=== PATIENT | female | born 1995 | race Caucasian/White ===

== ENCOUNTER 2016-09-26 21:05 | Observation (INO) | payer OTHER ==
[~2016-09-26] VITALS: Ht 172.7 cm; Wt 67.2 kg
[2016-09-26 21:23] VITALS: BP 142/79; PULSE 95; RESP 18; O2SAT 100
[2016-09-26 22:03] LABS: APPEARANCE,URINE CLEAR (CLEAR,HAZY); COLOR,URINE YELLOW (YELLOW); PH,URINE 6.5 (5.0-8.0)
[2016-09-26 22:04] LABS: OCCULT BLOOD,URINE NEGATIVE (NEGATIVE); UROBILINOGEN,URINE NORMAL (NORMAL)
[2016-09-26 22:37] LABS: BASOPHILS % (AUTO) 0.2 % (0-3); EOSINOPHILS % (AUTO) 0.9 % (0-5); MONOCYTES % (AUTO) 10.8 % (4-12); Mean Corpuscular Hemoglobin 30.9 pg (27.0-35.0); Mean Corpuscular Volume 92.2 fL (81-100); NEUTROPHILS % (AUTO) 71.1 % (40-74); Platelet Count 233 bil/L (150-400)
[2016-09-26 23:10] LABS: Magnesium 1.9 mg/dL (1.6-2.6)
--- NOTE | 2016-09-26 23:13 | ED.REPORT ---
HPI-Abd Pain F Under 40 Date of Service Sep 26, 2016 ED Provider: Spencer Schmitz DO Patient is a 21 year old female who presents to the ED complaining of lower abdominal pain onset 0700 this morning. The patient describes the pain as stabbing and constant. Patient states that urinating increases her abdominal pain. She denies vomiting, nausea, diarrhea or dysuria. The patient's mother reports that she looks pale. Nursing Notes Stated Complaint: ABDOMINAL PAIN Chief Complaint: Female Abdominal Pain Nursing Notes Reviewed: Yes Allergies: Coded Allergies: No Known Allergies (Unverified , 09/26/16) General Time Seen by MD: 23:12 Chief Complaint Abdominal pain Hx Obtained From: Patient Arrived By: Walk-in Sudden in Onset?: Yes Onset Occurred: 5 - 8 hours ago Symptom Duration: Since onset Location: : Abdomen lower Quality: Stabbing Radiation: : Does not radiate Severity: Current: Moderate Associated with: Denies: Nausea, Vomiting Recent Healthcare: No recent doctor visit, No recent hospitalization Similar Sx Previous: No Past Medical History Past Medical History none reported Smoking History Unknown if Ever Smoker Social History Other Social History: Good social support Ambulatory Status Independent Review of Systems Constitutional: Denies: Chills, Fever Respiratory: Denies: Non-productive cough, Shortness of breath GI: Reports: Abdominal pain, Denies: Diarrhea, Nausea, Vomiting Female: Denies: Dysuria Complete sys rev & neg: except as marked. Physical Exam Initial Vital Signs Vital Signs (First) Date Time Temp Pulse Resp B/P Pulse Ox O2 Delivery O2 Flow Rate FiO2 09/26/16 21:23 36.9 95 18 142/79 100 Room Air Initial VS: Reviewed General/Constitutional: Awake, Alert Distress / Hydration: Positive: Distress moderate Respiratory / Chest: Atraumatic, Breath sounds NL, Breath sounds = bilat, No respiratory distress Cardiovascular: Heart rate NL, Regular rhythm, Heart sounds NL Abdomen: Atraumatic, Soft Tenderness/Guarding/Rebound: Positive: Tender RLQ... (Moderate), Tender diffuse Back: Atraumatic, Non-tender Head / Eyes: Atraumatic, Normocephalic, PERRL, EOMI generalized pallor Neurologic: Oriented X3, Speech NL, No motor deficits, No sensory deficits Upper Extremity / MS: Atraumatic, Full range of motion Lower Extremity / Pelvis / MS: Atraumatic, Full range of motion Psychiatric: Affect NL, Mood NL Interpretation & Diagnostics Interpretation & Diagnostics: US TRANSABDOMINAL PELVIS: CONCLUSION: 1. Acute appendicitis as detailed. There is a tubular blind-ending structure measuring up to 11mm diameter in the RLQ. There are a few echogenic foci measuring up to 8mm consistent with appendicoliths. Trace free fluid. 2. Ovaries are normal size. at 0120 Lab Results Interpretation Result Diagram: 09/26/16 [id number] Test 09/26/16 21:45 09/26/16 22:05 Urine Color Yellow (YELLOW) Urine Appearance Clear (CLEAR,HAZY) Urine pH 6.5 (5.0-8.0) Urine Specific Black 1.010 (1.003-1.035) Urine Protein Negativemg/dL (NEG,TRACE) Urine Glucose (UA) Negativemg/dL (NEGATIVE) Urine Ketones Negativemg/dL (NEGATIVE) Urine Occult Blood Negative (NEGATIVE) Urine Nitrite Negative (NEGATIVE) Urine Bilirubin Negative (NEGATIVE) Urine Urobilinogen Normalmg/dL (NORMAL) Urine Leukocyte Esterase Negative (NEGATIVE) Urine RBC 0-2/hpf (0-2) Urine WBC 0-5/hpf (0-5) Urine Epithelial Cells Moderate/hpf (NONE-MOD) Urine Crystals None seen (NONE SEEN) Urine Bacteria Few/hpf (NONE-FEW) Urine Hyaline Casts None/lpf (NONE) Urine Granular Casts None seen (NONE SEEN) Urine Waxy Casts None seen (NONE SEEN) Urine Red Blood Cell Casts None seen (NONE SEEN) Urine White Blood Cell Casts None seen (NONE SEEN) Urine Mucus None seen (None Seen) Urine Trichomonas None seen (NONE SEEN) Urine Yeast None (NONE SEEN) Urinalysis Comment None Urine Culture Reflexed Not indicated White Blood Count 13.3th/mm3 (3.8-10.1) Red Blood Count 4.34mil/mm3 (3.90-5.20) Hemoglobin 13.4g/dL (12.0-15.6) Hematocrit 40.0% (35.0-46.0) Mean Corpuscular Volume 92.2fL (81-100) Mean Corpuscular Hemoglobin 30.9pg (27.0-35.0) Mean Corpuscular Hemoglobin Concent 33.5% (32.0-37.0) Red Cell Distribution Width 12.5% (12.3-15.4) Platelet Count 233bil/L (150-400) Neutrophils (%) (Auto) 71.1% (40-74) Lymphocytes (%) (Auto) 16.8% (14-46) Monocytes (%) (Auto) 10.8% (4-12) Eosinophils (%) (Auto) 0.9% (0-5) Basophils (%) (Auto) 0.2% (0-3) Sodium Level 136mEq/L (134-144) Potassium Level 3.9mEq/L (3.5-5.2) Chloride Level 101mEq/L (97-108) Carbon Dioxide Level 20mmol/L (18-29) Blood Urea Nitrogen 10mg/dL (6-20) Creatinine 0.83mg/dL (0.57-1.00) Estimat Glomerular Filtration Rate 122mL/min (>59) Glucose Level 94mg/dL (60-99) Calcium Level 9.4mg/dL (8.5-10.1) Magnesium Level 1.9mg/dL (1.6-2.6) Total Bilirubin 0.3mg/dL (0.0-1.2) Aspartate Amino Transf (AST/SGOT) 15U/L (0-50) Alanine Aminotransferase (ALT/SGPT) 11U/L (0-32) Alkaline Phosphatase 48U/L (25-150) Total Protein 7.7g/dL (6.4-8.4) Albumin 4.7g/dL (3.4-5.0) Lipase 24U/L (13-60) Hold Hong Top Tube Received (Received) Re-Eval/Medical Decision Med Decision/Clinical Course Med Decision/Clinical Course: Right lower quadrant abdominal pain and tenderness. CT consistent with acute appendicitis. Admitted for observation until she can be seen for surgery tomorrow. Re-Evaluation/Progress : Time of Eval: 01:24 Re-Evaluation/Progress Note: Discussed results and plan for admission. The patient understands and agrees to the plan. All questions were addressed. Consultation : Referral / Consult Name: Dave Harris MD Consulted With: Surgeon Call Returned at: 01:32 Accountant Clerk: Agrees with eval, Agrees with plan, Accepts admit Counseled Regarding: Diagnosis, Lab results, Need for admission Discharge & Departure Primary Impression: Acute appendicitis Acute appendicitis type: unspecified acute appendicitis type Qualified Code: K35.80 - Unspecified acute appendicitis Disposition: ADMITTED TO HOSPITAL Discharge Condition All VS Reviewed: Yes Condition: Stable Referrals: Tammy Irene MD (PCP) Jose L Smith MD (Family) Scribe Attestation Portions of this note were transcribed by Zulma Richard. I, Dr. Schmitz personally performed the history, physical exam and medical decision-making; I reviewed and confirmed the accuracy of the information in the transcribed note. Signed by: Zulma Rossi, 09/26/16 and 2330 copies to: Tammy Irene MD; Jose L Smith MD, Todd P DO Sep 26, 2016 23:13 Nathalia Richard Sep 26, 2016 23:28
[2016-09-26] MEDS ORDERED: Ondansetron 2 mg/mL 2 mL Inj IVPUSH PRN (23:25)
[2016-09-26] MEDS: 0.9% Sodium Chloride 1,000 ML IV SCH (23:40)
[2016-09-26] MEDS: HYDROmorphone 0.5 mg/0.5 mL iSecure Syringe IVPUSH PRN (23:40)
[2016-09-27] VITALS (13 sets, daily range): BP systolic 95–138; BP diastolic 44–72; PULSE 80–151; RESP 12–22; O2SAT 96–100
[2016-09-27] MEDS: HYDROmorphone 0.5 mg/0.5 mL iSecure Syringe IVPUSH PRN ×7 (00:17→08:04)
[2016-09-27] MEDS: 0.9% Sodium Chloride 1,000 ML IV SCH (00:17)
[2016-09-27] MEDS ORDERED: Piperacillin-Tazo 3.375 Gm Inj 3.375 GM in Dextrose 5% Minibag Plus 50 ML IV ONE (01:25)
[2016-09-27] MEDS ORDERED: Alum-Mag Hydrox-Simeth 30 mL Suspension PO PRN (01:45)
[2016-09-27] MEDS ORDERED: Ondansetron 2 mg/mL 2 mL Inj IVPUSH PRN ×3 (01:45→10:15)
--- NOTE | 2016-09-27 02:45 | NUR ---
Admit Received report from [employer] [employer] FEEDER Kira Enriquez @ 2am who then brought patient to floor @ this time accompanied with mother DX acute appendicitis will have appy later today npo for now LR moises and .5 Dilaudid given for pain orientated to room ,ind. no previous medical hx admission complete
[2016-09-27] MEDS: Lactated Ringer's 1,000 ML IV SCH ×3 (03:21→11:42)
[2016-09-27] MEDS: Piperacillin-Tazo 3.375 Gm Inj 3.375 GM in Dextrose 5% Minibag Plus 50 ML IV SCH ×3 (08:30→16:30)
--- NOTE | 2016-09-27 08:49 | HP ---
[address] [address] HISTORY AND PHYSICAL PATIENT: IRVING CABRERA : 1995 MR#: [id number] ADMIT: 09/27/2016 JOB ID: [id number] DATE OF ENCOUNTER: 09/27/2016 CHIEF COMPLAINT: Acute Appendicitis. HISTORY OF PRESENT ILLNESS: The patient is a 21-year-old female presented to the emergency department last night with complaint of right lower quadrant abdominal pain. She tells me that she awoke Tuesday morning with a sharp stabbing right lower quadrant pain. She was provided temporary relief from ibuprofen, but then the pain recurred. She denies any nausea, vomiting, anorexia, or fevers or chills. She has had no recent change in her bowel habits. Her last menstrual period was about three weeks ago. The pain grew worse over the day, prompting a visit to the emergency department. There she was found to have leukocytosis of 13.3. An ultrasound of the abdomen was obtained, which was consistent with acute appendicitis demonstrating 11 mm blind tube in the right lower quadrant. The ovaries appeared normal. She was therefore admitted to the surgical service overnight after receiving a dose of Zosyn. PAST MEDICAL HISTORY: None. MEDICATIONS: None. ALLERGIES: She has a history to LATEX BAND-AIDS. PAST SURGICAL HISTORY: None. FAMILY HISTORY: Significant for a grandmother who has CHF. SOCIAL HISTORY: She lives in [place] and, works for [employer], does not smoke, rarely drinks alcohol. REVIEW OF SYSTEMS: Full review of systems is obtained and significant only for right lower quadrant abdominal pain. PHYSICAL EXAMINATION: She has remained afebrile overnight. This morning, she is mildly tachycardic up to 114. Blood pressure was 105/58. She is satting 100% on room air with respiratory rate of 16 breaths per minute. In general, she appears comfortable in no acute distress. Cardiovascular: She has a sinus tachycardia with no appreciated murmurs, rubs, gallops. Pulmonary: Lungs clear to auscultation bilaterally. Vascular: She has no carotid bruit. Neck: She has no thyromegaly. Lymph: She has no cervical lymphadenopathy. Gastrointestinal: Her abdomen is soft, nondistended. She has a negative Parisi sign. She has focal tenderness to palpation in the right lower quadrant. Extremities: Warm without significant edema. Skin is warm without rash. Neurologic is grossly intact. Psychiatric is pleasant appropriate. LABORATORY DATA: Labs in the emergency department she had a white blood cell count of 13.3, hematocrit 40, and platelet count of 233. Her metabolic panel was unremarkable. IMAGING: Ultrasound was personally viewed and as per the HPI. ASSESSMENT AND PLAN: This is a 21-year-old female with a history, physical, and sonographic findings consistent with early acute appendicitis. I discussed the diagnosis of acute appendicitis with the patient and her mother. I discussed the recommendation for laparoscopic appendectomy. I also reviewed nonoperative management with antibiotics. I discussed the possibility of a negative appendectomy. The patient understands and wishes to proceed with surgery. The technical and convalescent aspects of surgery, as well as potential risks and complications were reviewed. This will be done later this morning. BRANDON
--- NOTE | 2016-09-27 09:08 | DRSVH ---
PROCEDURE: US PELVIC SONOGRAM INDICATIONS: RLQ and left lower pelvic pain, leukocytosis TECHNIQUE: Real-time focused scanning was performed of the abdomen with attention to the appendix, with image do cumentation. COMPARISON: None. FINDINGS: Appendix visualization: yes Appendix measurements: 7.4-10.6 mm Associated findings: Echogenic fat: Present Appendiceal compressibility: Noncompressible Appendicoliths: Present Nearby free fluid: Small amount of free fluid Lymphadenopathy: No enlarged lymph node Tenderness on exam: Yes IMPRESSION: Appendix is thickened and noncompressible measuring up to 10.6 mm. There is an appendicol ith and a small amount of free fluid in the right lower quadrant. The ultrasound findings are highly suspicious for acute appendicitis. No significant discrepancy with the retail shift supervisor radiology preliminary report. Dictated by: Maxim Emery M.D. on 09/27/2016 at 8:58 Approved by: Maxim Emery M.D. on 09/27/2016 at 9:06
--- NOTE | 2016-09-27 09:20 | NUR ---
pain/OR Pt. reported pain to be 7-10/10. Pt. teary, holding on to belly. Pt. was given 0.5mg IV diluadid with very little relief. Pt. denies nausea at this time. IV fluids infusing per orders; pt. continues to be NPO. Pt. left Unit at 0920 to OR with Mom at her side.
[2016-09-27] MEDS ORDERED: Lactated Ringer's 1,000 ML IV SCH (10:12)
[2016-09-27] MEDS ORDERED: Lactated Ringer's 500 ML IV PRN (10:12)
[2016-09-27] MEDS ORDERED: Bupivacaine-MPF 0.5% W/EPI 30 mL Inj INFILTRATE ONE (10:14)
--- NOTE | 2016-09-27 10:14 | PCM.HPANE ---
Patient Data Surgeon Admitting Provider:Dave Harris MD Attending Provider:Dave Harris MD Primary Care Physician:Tammy Irene MD Other Provider:Jc Marshall Anesthesia Reason for Visit Acute Appendicitis Ht/WT & BMI Height (Feet): 5 Height (Inches): 8.00 Weight (Kilograms): 67.200 Body Mass Index 22.45 Allergies Coded Allergies: No Known Allergies (Unverified , 09/26/16) Past Anesthesia History Anesthesia History: Denies:: Abnormal Airway, Anesthesia Reactions, Difficult Intubation, Fam Anesthesia Reaction, Fam Malignant Hypertherm, Malignant Hyperthermia Diabetes History Hx Diabetes?: No MRSA MRSA: No Medications No Active Prescriptions or Reported Meds History History of ENT Problems?: No HEENT History: Denies:: Abnormal Airway Cataracts Difficult Intubation Dysphagia Glaucoma Hearing Problem Sinus Problem TMJ Denture Type: None Teeth Condition: Within Normal Limits Hx of Heart Problems?: No Cardiovascular History: Denies:: AICD Abdominal Aortic Aneurism Atrial Fibrillation Cardiac Surgery Chest Pain Congestive Heart Failure Coronary Artery Disease Edema Heart Murmur Hypertension Irregular Heartbeat Pacemaker Peripheral Vascular Rheumatic Fever Thrombophlebitis Valvular Heart Disease Hx of Respiratory Problem?: No Respiratory History: Denies:: Asthma COPD Chest Surgery Cough Dyspnea Emphysema Hemoptysis Oxygen Administration Pneumonia Pulmonary Embolism Tuberculosis Use of C-PAP Machine Use of Inhalers / NEBS Hx Neurologic Problems?: No Neurological History: Denies:: Alzheimer's Disease CVA Dementia Dizziness Headaches Multiple Sclerosis Parkinson's Disease Peripheral Neuropathy Seizures TIA Hx of GI Problems?: No Gastrointestinal History: Denies:: Cirrhosis Diverticulitis Gall Bladder Disease Gastroesphageal Reflux Gastrointestinal Bleeding Heartburn Hepatitis Hiatal Hernia Liver Disease Rectal Bleeding Hx of Problems?: Yes Genitourinary History: Positive for:: Urinary Tract Infection Denies:: HX of Hemodialysis Kidney Stones HX of Peritoneal Dialysis: No Female Hx: Denies:: Currently Endometriosis Pelvic Inflammatory Problems with Breasts? Skin History: Denies:: History Skin Disorders? Pressure Ulcers Hx Musculoskeletal Problems?: No Musculoskeletal History: Denies:: Back Injury Degenerative Joint Fibromyalgia Joint Replacement Musculoskeletal Trauma Myasthenia Gravis Osteoarthritis Rheumatoid Arthritis Systemic Lupus Hx of Psycho/Social Problems?: No Psycho Social History: Denies:: Anxiety Bipolar Disorder Hx Depression Suicide Attempt Hx Surgeries?: No Hx Any Other Health Problems?: No Other History: Denies:: Cancer Endocrine Disease Hospitalization Thyroid Disease History Blood Transfusions: Positive for:: Accept Blood Products? Denies:: Blood Transfuse Reaction Blood Transfusions Hx Diabetes: No Hx Alcohol Use: Yes (rare)Hx Substance Use: No Smoking Status: Unknown if Ever Smoker Stop/Bang Treated for Sleep Apnea?: No Do You Have a CPAP Machine?: No S-Snoring: Do You Snore Loudly: No T-Tired: feel tired, fatigued: Yes O-Obsered: Observed not breath: No P-Blood Pressure: treated: No B- Body Mass Index > 35 kg/m2: No A- Age over 50: No N- Neck Large Circumference: No G- Gender Male: No ANGELICA Total Score: 1 Risk Assessment Category Category 1A: Patient has history of documented sleep apnea, and HAS NOT received any narcotic, sedative or anesthesia administration during this stay. Category 1B: Patient has history of documented sleep apnea, and HAS received any narcotic , sedative or anesthesia administration during this stay Category 2: Patient has SUSPECTED Obstructive Sleep Apnea, and HAS received any narcotic , sedative or anesthesia administration during this stay. Category 3: Patient has SUSPECTED Obstructive Sleep Apnea and HAS NOT received narcotic, sedative or anesthesia administration during this stay. Category 4: Outpatient in Procedural Areas with known sleep apnea or who screen positive for High Risk via the STOP/BANG questionnaire. Exam Exam Vital Signs Vital Signs Date Time Temp Pulse Resp B/P Pulse Ox O2 Delivery O2 Flow Rate FiO2 09/27/16 06:09 37.2 114 16 105/58 100 Room Air 09/27/16 02:46 37.3 98 16 107/63 98 Room Air 09/27/16 01:56 37.1 80 16 138/72 98 Room Air General Appearance: Alert, Oriented X3, Cooperative, No Acute Distress HEENT/AIRWAY: MP 2, Neck Movement, Mouth Opening (3 FBMO) Lungs: Clear to Auscultation, Normal Air Movement Heart: Exam Unremarkable, Regular Rate/Rhythm, No Murmurs/Rubs/Gallops Meds/Labs/Diagnostics Admission Meds Current Medications Sodium Chloride 1,000 ml @ 0 mls/hr Q0M IV Last administered on 09/27/16t 00: 17; Start 09/26/16 at 23:25 Piperacillin Sod/ Tazobactam Sod 3.375 gm/Dextrose/ Water 50 ml @ 100 mls/hr ONCE ONCE IV Last administered on 09/27/16 01:33; Start 09/27/16 at 01:25; Stop 09/27/16 at 01:54; Status DC Lactated Ringer's (Lr) 1,000 ml @ 100 mls/hr Q10H IV Last administered on 09/27 03:21; Start 09/27/16 at 01:42 Labs Test 09/26/16 21:45 09/26/16 22:05 Urine Color Yellow (YELLOW) Urine Appearance Clear (CLEAR,HAZY) Urine pH 6.5 (5.0-8.0) Urine Specific [place] 1.010 (1.003-1.035) Urine Protein Negativemg/dL (NEG,TRACE) Urine Glucose (UA) Negativemg/dL (NEGATIVE) Urine Ketones Negativemg/dL (NEGATIVE) Urine Occult Blood Negative (NEGATIVE) Urine Nitrite Negative (NEGATIVE) Urine Bilirubin Negative (NEGATIVE) Urine Urobilinogen Normalmg/dL (NORMAL) Urine Leukocyte Esterase Negative (NEGATIVE) Urine RBC 0-2/hpf (0-2) Urine WBC 0-5/hpf (0-5) Urine Epithelial Cells Moderate/hpf (NONE-MOD) Urine Crystals None seen (NONE SEEN) Urine Bacteria Few/hpf (NONE-FEW) Urine Hyaline Casts None/lpf (NONE) Urine Granular Casts None seen (NONE SEEN) Urine Waxy Casts None seen (NONE SEEN) Urine Red Blood Cell Casts None seen (NONE SEEN) Urine White Blood Cell Casts None seen (NONE SEEN) Urine Mucus None seen (None Seen) Urine Trichomonas None seen (NONE SEEN) Urine Yeast None (NONE SEEN) Urinalysis Comment None Urine Culture Reflexed Not indicated White Blood Count 13.3th/mm3 (3.8-10.1) Red Blood Count 4.34mil/mm3 (3.90-5.20) Hemoglobin 13.4g/dL (12.0-15.6) Hematocrit 40.0% (35.0-46.0) Mean Corpuscular Volume 92.2fL (81-100) Mean Corpuscular Hemoglobin 30.9pg (27.0-35.0) Mean Corpuscular Hemoglobin Concent 33.5% (32.0-37.0) Red Cell Distribution Width 12.5% (12.3-15.4) Platelet Count 233bil/L (150-400) Neutrophils (%) (Auto) 71.1% (40-74) Lymphocytes (%) (Auto) 16.8% (14-46) Monocytes (%) (Auto) 10.8% (4-12) Eosinophils (%) (Auto) 0.9% (0-5) Basophils (%) (Auto) 0.2% (0-3) Sodium Level 136mEq/L (134-144) Potassium Level 3.9mEq/L (3.5-5.2) Chloride Level 101mEq/L (97-108) Carbon Dioxide Level 20mmol/L (18-29) Blood Urea Nitrogen 10mg/dL (6-20) Creatinine 0.83mg/dL (0.57-1.00) Estimat Glomerular Filtration Rate 122mL/min (>59) Glucose Level 94mg/dL (60-99) Calcium Level 9.4mg/dL (8.5-10.1) Magnesium Level 1.9mg/dL (1.6-2.6) Total Bilirubin 0.3mg/dL (0.0-1.2) Aspartate Amino Transf (AST/SGOT) 15U/L (0-50) Alanine Aminotransferase (ALT/SGPT) 11U/L (0-32) Alkaline Phosphatase 48U/L (25-150) Total Protein 7.7g/dL (6.4-8.4) Albumin 4.7g/dL (3.4-5.0) Lipase 24U/L (13-60) Hold Hong Top Tube Received (Received) Plan Impression Patient chart reviewed, patient interviewed and anesthestic plan with risks, benefits, and alternatives discussed, and informed consent obtained. NPO per Anesth. Guidelines: Yes ASA Physical Status: ASA2 Mod Systemic Disease Anesthetic Plan: GA Bene/Risks/Altern/Consents: Yes HP Complete Prior to Induction: Yes Galdino Morales MD Sep 27, 2016 08:57
[2016-09-27] MEDS ORDERED: EPHEDrine Sulfate 50 mg/mL Inj IVPUSH PRN (10:15)
[2016-09-27] MEDS ORDERED: Atropine 0.4 mg/mL Inj IVPUSH PRN (10:15)
[2016-09-27] MEDS ORDERED: fentaNYL-PF 50 mCg/mL 2 mL Inj IVPUSH PRN (10:15)
[2016-09-27] MEDS ORDERED: MetoCLOpramide 5 mg/mL 2 mL Inj IVPUSH PRN (10:15)
[2016-09-27] MEDS ORDERED: HYDROmorphone 1 mg/mL Inj IVPUSH PRN (10:15)
[2016-09-27] MEDS ORDERED: Labetalol 5 mg/mL 4 mL Inj IV PRN (10:15)
[2016-09-27] MEDS ORDERED: Phenylephrine 10,000 mCg/mL Inj IVPUSH PRN (10:15)
[2016-09-27] MEDS ORDERED: Sodium Chloride LOK Flush 10 mL Syringe IVFLUSH PRN (10:45)
--- NOTE | 2016-09-27 10:45 | PCM.DISURG ---
Surgical Discharge Instruction Date of Service Sep 27, 2016 Dates of Hospitalization Date of Hospital Admission Sep 27, 2016 at 01:29 Providers Admitting Physician: Dave Harris MD Primary Care Physician: Tammy Irene MD Attending Physician: Dave Harris MD Discharge Diagnosis Discharge Diagnosis acute appendicitis Diet Discharge Diet: No restrictions Activity Discharge Activity-General: No restrictions, No driving while taking narcotic Dressing and Incisional Care Hygiene: May shower Follow Up Plan Follow Up Plan f/u surg PA in 3-4 weeks Call your provider for: Fever, Chills, Increasing abdominal pain, Nausea, Vomiting, Wound redness Jay Jiang MD Sep 27, 2016 10:45
[2016-09-27] MEDS ORDERED: OXYC5TAB72 PO (10:46)
--- NOTE | 2016-09-27 10:52 | NUR ---
Social Work-screening/readiness for discharge: Data:EMR reviewed. Pt is a 21 y/o female who was admitted on 09/27/16 for acute appendicitis per H&P. Pt's insurance is [employer] and PCP is Tammy Irene MD. EMR Reviewed. Pt resides at home where she remains independent with ADLs. Pt to go to the OR today. Pt's family to provide transport home. No discharge needs identified. SW will continue to follow if needs arise. Assessment:Pt who is independent at baseline. Plan:Pt to discharge home when medically stable via POV. No discharge needs identified. SW will continue to follow if needs arise. ALIREZA Priest
--- NOTE | 2016-09-27 11:47 | NUR ---
Post-op Pt. arrived to unit approx. 1125. Pt. sleepy, easily aroused. VSS, pt. sating 100% on RA. IV present, infusing zosyn. SCDs on. Pt. denies pain or nausea. Able to move all ext. 3 incisions present, dermabond intact; minimal drainage noted. Family at bedside. Care continues.
--- NOTE | 2016-09-27 13:45 | PCM.ANEP1 ---
Post Anesthesia PACU Phase 1 Assessment Vital Signs Vital Signs Date Time Temp Pulse Resp B/P Pulse Ox O2 Delivery O2 Flow Rate FiO2 09/27/16 11:20 37.4 104 16 112/69 100 Room Air 09/27/16 11:15 110 14 113/53 98 Room Air 09/27/16 11:00 37.5 112 18 111/49 100 Room Air 09/27/16 10:55 94 14 105/49 100 Simple Mask 8 09/27/16 10:50 100 13 101/45 100 Simple Mask 8 09/27/16 10:45 104 13 101/44 100 Simple Mask 8 09/27/16 10:43 36.8 151 12 97/44 100 Simple Mask 8 09/27/16 08:15 38.3 118 20 122/71 100 Room Air 09/27/16 06:09 37.2 114 16 105/58 100 Room Air Anesthetic Administered: GA Level of Alertness: Sleepy, easy to arouse YEN's with Equal Strength: Yes Pain: No Pain Scale Score: 10 Nausea or Vomiting: No CV Function & Hydration Stable: No Airway Device: Oxygen Delivery: Room Air Lungs: Clear to Auscultation, Normal Air Movement Dermatome Level: Full Sensation PACU Phase 2 Assessment Complications: No Follow up Care: N/A Patient Instructions Provided: N/A Galdino Morales MD Sep 27, 2016 13:45
--- NOTE | 2016-09-27 17:32 | PCM.DC.SUR ---
Discharge Summary Date of Service: Sep 27, 2016 Date of Hospital Admission: Sep 27, 2016 at 01:29 Date of Operation(s): Sep 27, 2016 Date of Discharge: Sep 27, 2016 Diagnosis at Time of Discharge acute appendicitis Problems: (1) Acute appendicitis Qualifiers: Acute appendicitis type: unspecified acute appendicitis type Qualified Code : K35.80 - Unspecified acute appendicitis Status: Acute ICD Code: K35.80 Operation Laparoscopic appendectomy Brief History and Physical: The patient is a 21-year-old female presented to the emergency department last night with complaint of right lower quadrant abdominal pain. She tells me that she awoke Tuesday with a sharp stabbing right lower quadrant pain. She was provided temporary relief from ibuprofen, but then the pain recurred. She denies any nausea, vomiting, anorexia, or fevers or chills. She has had no recent change in her bowel habits. Her last menstrual period was about three weeks ago. The pain grew worse over the day, prompting a visit to the emergency department. There she was found to have leukocytosis of 13.3. An ultrasound of the abdomen was obtained, which was consistent with acute appendicitis. The ovaries appeared normal. She was therefore admitted to the surgical service overnight after receiving a dose of Zosyn. Physcial exam: She has remained afebrile overnight. This morning, she is mildly tachycardic up to 114. Blood pressure was 105/58. She is satting 100% on room air with respiratory rate of 16 breaths per minute. In general, she appears comfortable in no acute distress. Cardiovascular: She has a sinus tachycardia with no appreciated murmurs, rubs, gallops. Pulmonary: Lungs clear to auscultation bilaterally. Vascular: She has no carotid bruit. Neck: She has no thyromegaly. Lymph: She has no cervical lymphadenopathy. Gastrointestinal: Her abdomen is soft, nondistended. She has a negative Parisi sign. She has focal tenderness to palpation in the right lower quadrant. Extremities: Warm without significant edema. Skin is warm without rash. Neurologic is grossly intact. Psychiatric is pleasant appropriate. LABORATORY DATA: Labs in the emergency department she had a white blood cell count of 13.3, hematocrit 40, and platelet count of 233. Her metabolic panel was unremarkable. Consultants: None Hospital Course: The patient arrived early in the morning and was stabilized in the ED and started on antibiotics. Later in the morning she was taken to the operating room for a laparoscopic appendectomy. Please refer to the operative report for further details of the procedure. She tolerated the procedure well and later in the afternoon exhibited good pain control, was able to ambulate and the surgical wounds were intact and non-problematic. She was deemed stable and was then discharged to home in good condition. Pathology: pending Disposition: home in good condition Follow-up Plan: Discharge Diet: No restrictions Discharge Activity-General: No restrictions, No driving while taking narcotic Hygiene: May shower Follow Up Plan f/u surg PA in 3-4 weeks Call your provider for: Fever, Chills, Increasing abdominal pain, Nausea, Vomiting, Woun oxyCODONE (oxyCODONE) 5 Mg Tablet 5 MG PO QID PRN PRN For Pain copies to: Tammy Irene MD, Samuel L PA-C Sep 27, 2016 17:31
[2016-09-27] MEDS ORDERED: Phenylephrine/NS 100 mCg/mL 10 mL Syringe IVPUSH ONE (18:59)
[2016-09-27] MEDS ORDERED: fentaNYL-PF 50 mCg/mL 2 mL Inj ONE (18:59)
[2016-09-27] MEDS ORDERED: Ondansetron 2 mg/mL 2 mL Inj ONE (18:59)
[2016-09-27] MEDS ORDERED: Rocuronium 10 mg/mL 5 mL Inj ONE (18:59)
[2016-09-27] MEDS ORDERED: MetoCLOpramide 5 mg/mL 2 mL Inj ONE (18:59)
[2016-09-27] MEDS ORDERED: Propofol 10,000 mCg/mL 20 mL Inj ONE (18:59)
[2016-09-27] MEDS ORDERED: Dexamethasone 4 mg/mL Inj ONE (18:59)
[2016-09-27] MEDS ORDERED: Glycopyrrolate 0.2 MG/ML 1mL Inj ONE (18:59)
[2016-09-27] MEDS ORDERED: Neostigmine 1 mg/mL 10 mL Inj ONE (18:59)
--- NOTE | 2016-09-27 19:27 | NUR ---
Discharge Pt. given discharge instructions, care notes on appy. Hard copy of script given. F/u instructions given, provided phone number to [facility]. Saline lock discontinued. Pt. verbalized understanding. Pt. wheeled of unit via w/c by staff. Mom to provide transportation. Approx. discharge time 1903.
--- NOTE | 2016-09-27 22:37 | OP ---
[address] [address] OPERATIVE REPORT PATIENT: IRVING CABRERA : 1995 MR#: [id number] ADMIT: 09/27/2016 JOB ID: [id number] DATE OF SURGERY: 09/27/2016 ANESTHESIA: General. PREOPERATIVE DIAGNOSIS(ES): Acute appendicitis. POSTOPERATIVE DIAGNOSIS(ES): Acute appendicitis (nonperforated). OPERATION: Laparoscopic appendectomy. SURGEON: Dr. Jay Jiang. TALENT ENGINEER: Dr. Navarrete MS3. COMPLICATIONS: None. ESTIMATED BLOOD LOSS: Less than 5 mL. CONDITION: Satisfactory. SPECIMEN: Appendix. FINDINGS: The tip of the appendix was obviously inflamed. An appendectomy was performed without complication. INDICATIONS/SIGNIFICANT HISTORY: The patient is a 20-year-old female who developed right lower quadrant abdominal pain yesterday. She was eventually brought to the emergency department where she was found to have a leukocytosis with sonographic findings suggestive of acute appendicitis. OPERATIVE TECHNIQUE: The patient was taken to the operating room and placed in the supine position. General anesthesia was administered and perioperative antibiotics were given. The abdomen was prepped and draped in standard surgical fashion and a procedural pause performed. Entry was gained to the abdomen through a supraumbilical incision using a 5 mm Optiview trocar. Pneumoperitoneum was achieved without complication. Local anesthetic was injected, followed by insertion of 5 mm ports in the suprapubic area as well as in the left lower quadrant. Eventually, the left lower quadrant port was up-sized to an 11 mm port. The appendix was easily visible. It was inflamed. A small window was made at the base of the appendix through the mesoappendix. I then stapled across the base using a WALDEMAR 45 blue load. I then stapled across the mesoappendix using a white load. There was a very small amount of bleeding at the mesoappendix staple line which was controlled with electrocautery. The appendix was then removed through the 11 mm port. The surgical field was inspected and found to be completely hemostatic. The 11 mm port site fascia was then closed using 0 PDS with the laparoscopic suture passer. The suprapubic port was then removed and the pneumoperitoneum released. The remaining umbilical port was then removed. Skin was closed using 4-0 Monocryl. The entire procedure was well tolerated without complication.
[2016-09-28] MEDS ORDERED: Polyethylene Glycol (PEG) 17 Gm Powder PO SCH (08:30)
--- NOTE | 2016-09-28 15:30 | PATH ---
SURGICAL PATHOLOGY Attending Physician:Jay Jiang MD CASE STATUS: Signed Out PATIENT NAME: IRVING CABRERA PID: [id number] : 1995 DATE COLLECTED:09/27/2016 15:23 SPECIMEN: Appendix CLINICAL HISTORY: ACUTE APPENDICITIS,SAME 1. APPENDIX FINAL DIAGNOSIS: 1.APPENDIX: ACUTE APPENDICITIS. ICD10 K35.80 GROSS DESCRIPTION: Received in formalin, labeled with the patient' s name and "appendix", is one appendix with a small amount of yellow, fatty tissue. The fragment measures 6.5 x 1.5 x 1.5 cm. The serosal surface is smooth and glistening. Sectioning shows the wall to measure up to 0.3 cm in thickness and a lumen distended to 0.5 cm and filled with a pink-brown, creamy substance. Leveling Machine Operator sections are submitted in cassette 1A. ([id number]) MICRO DESCRIPTION: See diagnosis. ICD-9 CODES: CPT CODES: 1: 09492 Electronically Signed Out Easton Broderick MD [facility] Pathology [facility] [address], [place] [address] Technical component performed at [facility], [facility] [address], [place], [address]
== END 2016-09-27 19:00 | disposition home or self-care (01) ==
LOC: SED 21:05 → MOC 09-27 01:29
PROVIDERS: ADMIT Surgery; ATTEND Surgery
DX: K35.80 Unspecified acute appendicitis (principal)
CPT/HCPCS: 36415; 44970; 76856; 80053; 81000; 81025; 83690; 83735; 85025; 94640; 96361; 96365; 96375; 96376; 99285; G0378; J1100; J1170; J2250; J2370; J2405; J2543; J2710; J2765; J3010; J7030; J7120